=== PATIENT | female | born 1995 | race Caucasian/White ===

== ENCOUNTER 2019-11-21 16:39 | Emergency (ER) | payer OTHER ==
[~2019-11-21] VITALS: Ht 167.6 cm; Wt 86.2 kg
--- NOTE | 2019-11-21 16:40 | NUR ---
Patient to ER bed 03 for evaluation. Side rails up. Report given to Quynh JOY.
[2019-11-21 16:49] VITALS: BP_SYST 136
--- NOTE | 2019-11-21 16:49 | NUR ---
Patient arrived via POV, AAOx4, and ambulatory with steady gait. 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 She states approximately 6 months ago she began having a rash to bilateral hands, between fingers, and upward to right wrist. Patient states she was treating it with OTC eczema cream with no relief. She states she was bit by a dog approximately 3 weeks ago and was placed on PO ABX, states she completed a 10 day course of ABX approximately 1 week ago. Patient states she thinks the ABX she was on Clindamycin, she states it was helping and there was mild oozing of clear pus like bubbles. Patient states no other people at work have similar rash nor has she seen a rash like this on animal. Patient states she often has wet hands and feels like it aggravates the condition. Patient states bothersome itching. Will continue to follow up and monitor.
--- NOTE | 2019-11-21 17:02 | NUR ---
ER at bedside examining patient.
[2019-11-21 18:13] VITALS: BP_SYST 136
--- NOTE | 2019-11-21 18:13 | NUR ---
Patient given written and verbal discharge instructions and verbalizes understanding. ER MD Solorzano discussed with patient the results and treatment provided. Patient in stable condition. ID arm band removed. Rx of Hydrocortizone, Clotrimazole given. Patient educated on pain management and to follow up with PMD. Pain Scale 0. Opportunity for questions provided and answered. Medication side effect fact sheet provided.
== END 2019-11-21 18:13 | disposition home or self-care (01) ==
LOC: SED 16:39
DX: B35.4 Tinea corporis (principal); Z88.6 Allergy status to analgesic agent; Z88.8 Allergy status to other drugs, medicaments and biological substances; Z91.013 Allergy to seafood
CPT/HCPCS: 99282